=== PATIENT | male | born 1965 | race Caucasian/White ===

== ENCOUNTER 2021-10-23 13:06 | Emergency (ER) | payer OTHER ==
[~2021-10-23] VITALS: Ht 177.8 cm; Wt 77.1 kg
[2021-10-23] MEDS ORDERED: DIPH25TA62 PO (14:37)
[2021-10-23] MEDS ORDERED: FLUT16SP16 NS (14:37)
[2021-10-23 15:02] VITALS: BP 124/80
--- NOTE | 2021-10-23 15:02 | NUR ---
Patient discharged to home in stable condition. Written and verbal after care instructions given. Patient verbalizes understanding of instructions. Stressed follow up or return to ER for worsening s/s.
== END 2021-10-23 15:03 | disposition home or self-care (01) ==
LOC: ER 13:06
DX: U07.1 COVID-19 (principal); J30.9 Allergic rhinitis, unspecified
CPT/HCPCS: 99283; U0003; A4663